=== PATIENT | male | born 1990 | race Caucasian/White ===

== ENCOUNTER 2016-11-18 15:40 | Emergency (ER) | payer OTHER ==
[~2016-11-18] VITALS: Ht 152.4 cm; Wt 56.3 kg
[2016-11-18] MEDS ORDERED: SODIUM CHLORIDE 0.9% 1,000 ML IV ONE (16:22)
[2016-11-18] MEDS ORDERED: ONDANSETRON 2MG/ML, 2ML ONE ×2 (16:26→17:30)
[2016-11-18] MEDS ORDERED: KETOROLAC 30 MG/1 ML ONE ×2 (16:26→18:35)
[2016-11-18] MEDS ORDERED: ONDANSETRON 2MG/ML, 2ML IVPush ONE (16:30)
[2016-11-18] MEDS ORDERED: KETOROLAC 30 MG/1 ML IVPush ONE (16:30)
[2016-11-18] MEDS ORDERED: SODIUM CHLORIDE FLUSH 10ML SYR IVF ONE (16:30)
[2016-11-18 16:50] VITALS: BP 139/73
[2016-11-18] MEDS ORDERED: MIDAZOLAM 1 MG/ML, 2ML ONE (17:14)
[2016-11-18] MEDS ORDERED: FENTANYL PF 250 MCG/5ML ONE (17:14)
[2016-11-18] MEDS ORDERED: ACETAMINOPHEN 325 MG TABLET PO PRN (17:30)
[2016-11-18] MEDS ORDERED: ONDANSETRON 2MG/ML, 2ML IVPush PRN (17:30)
[2016-11-18] MEDS ORDERED: LABETALOL 5MG/ML, 20ML IV PRN (17:30)
[2016-11-18] MEDS ORDERED: ROCURONIUM 10 MG/ML ONE ×2 (17:30)
[2016-11-18] MEDS ORDERED: SUCCINYLCHOLINE 20 MG/ML, 10ML ONE (17:30)
[2016-11-18] MEDS ORDERED: PROPOFOL 10 MG/ML, 20ML ONE (17:30)
[2016-11-18] MEDS ORDERED: OXYcodone 5 MG/5 ML ORAL.SOL UDC PO PRN (17:30)
[2016-11-18] MEDS ORDERED: FENTANYL PF 100 MCG/2ML IV PRN (17:30)
[2016-11-18] MEDS ORDERED: GLYCOPYRROLATE 0.2MG/1ML ONE (17:30)
[2016-11-18] MEDS ORDERED: HYDROmorphone 1 MG/ML, 1ML IV PRN (17:30)
[2016-11-18] MEDS ORDERED: hydrALAzine 20 MG/ML, 1ML IV PRN (17:30)
[2016-11-18] MEDS ORDERED: METOCLOPRAMIDE 5 MG/ML, 2ML IV PRN (17:30)
[2016-11-18] MEDS ORDERED: NEOSTIGMINE 1 MG/ML, 10ML ONE (17:30)
[2016-11-18] MEDS ORDERED: OMNIPAQUE 350 MG/ML, 50 ML BOTTLE IV ONE (17:45)
[2016-11-18] MEDS ORDERED: OXYcodone/APAP 5/325MG TABLET PO PRN (18:30)
[2016-11-18] MEDS ORDERED: KETOROLAC 30 MG/1 ML IV PRN (18:30)
[2016-11-18] MEDS ORDERED: ONDANSETRON 2MG/ML, 2ML IV PRN (18:30)
[2016-11-18] MEDS ORDERED: ACETAMINOPHEN 650 MG/20.3 ML UDC ONE (18:35)
[2016-11-18] MEDS ORDERED: FENTANYL PF 100 MCG/2ML ONE ×2 (18:35→19:50)
[2016-11-18] MEDS ORDERED: ACETAMINOPHEN 325 MG TABLET ONE (18:35)
[2016-11-18] MEDS ORDERED: OXYcodone 5 MG/5 ML ORAL.SOL UDC ONE (18:36)
[2016-11-18] MEDS ORDERED: PHENAZOPYRIDINE 200 MG TABLET ONE (20:05)
[2016-11-18] MEDS ORDERED: PHENAZOPYRIDINE 200 MG TABLET PO ONE (20:30)
== END 2016-11-18 20:30 ==
LOC: ED 16:06
DX: N13.2 Hydronephrosis with renal and ureteral calculous obstruction (principal); R10.11 Right upper quadrant pain
CPT/HCPCS: 52356; 74420; 82360; 88300; 96374; 96375; 96376; 99285; C2617; J0330; J1885; J2250; J2405; J2704; J2710; J3010; Q9967; J3490